=== PATIENT | male | born 1975 | race Caucasian/White ===

== ENCOUNTER 2018-03-29 08:10 | Outpatient (CLI) | payer BC ==
[~2018-03-29] VITALS: Ht 182.9 cm; Wt 88.6 kg
--- NOTE | ~2018-03-29 | OP ---
PATIENT NAME: LUNA BHATT MEDICAL RECORD: [id number] :71 LOCATION:D.CAT ADMISSION DATE: SURGEON: CHELITA PORTILLO MD DATE OF OPERATION: 03/29/2018 PROCEDURES: 1. Left heart catheterization. 2. Selective coronary angiography. 3. Left ventriculogram. INDICATIONS: Chest pain compatible with angina. PROCEDURE IN DETAIL: After informed consent was obtained and after a detailed description of risks, benefits as well as alternative therapies, the patient elected to proceed with angiogram and heart catheterization via radial area. The right radial area was prepped and draped in normal sterile fashion. Radial artery was cannulated via modified Seldinger technique with placement of 5-Croat[place] sheath. All catheters exchanged through this sheath. FINDINGS: Left ventriculogram was performed in a standard 30-degree GARCÍA view, reveals good cardiac wall motion throughout all segments. Overall ejection fraction estimated 60%. SELECTIVE CORONARY ANGIOGRAPHY: 1. LEFT MAIN - The left anterior descending, left circumflex, right coronary artery are all smooth-walled vessels with no angiographic evidence of coronary artery disease. OVERALL IMPRESSION: 1. No angiographic evidence of coronary artery disease. 2. Normal left heart pressures. 3. Normal left ventricular systolic function. 4. Chest pain is noncardiac in etiology. No other cardiac workup needs to be ascertained. TRANSINT:[id number] Voice Confirmation ID: [id number] DOCUMENT ID: [id number] CHELITA PORTILLO MD at 1823 CC: [id number] DICTATION DATE: 03/29/18 1007 ROLLING CHAIR PUSHER: 03/29/18 1046 DEP CLI 03/29/18 [place] [id number]
--- NOTE | ~2018-03-29 | HEMODYNAMI ---
PATIENT:LUNA BHATT MEDICAL RECORD: [id number] : 71 LOCATION:[facility] ADMISSION DATE: 03/29/18 Generatedon:03/29/201810:08 Patient name: LUNA BHATT Patient #: [id number] SSN: : 1975 Date of study: 03/29/2018 Page: Of Hemodynamic Procedure Report Patient Data Patient Demographics Procedure consent was obtained First Name: LUNA Gender: Male Last Name: MILLER : 1975 Patient #: [id number] Age: 42 year(s) Race: Unknown Additional ID: [id number] Contact details Address: [place] [address] State: [place] City: [place] Zip code: [address] Past Medical History Allergies: No known allergies Admission Admission Data Admission Date: 03/29/2018 Admission Time: 8:10 Procedure Procedure Types Cath Procedure Diagnostic Procedure LHC LHC w/Coronaries Procedure Description Procedure Date Procedure Date: 03/29/2018 Procedure Start Time: 9:59 Procedure End Time: 10:06 Procedure Staff Name Function Loyd Hatch MD Performing Physician Katrin Kramer RT Monitor Suzy Beltrán RT Scrub Velasquez Liu RN Nurse Dayron Moore RN Card Placer Procedure Data Cath Procedure Fluoroscopy Diagnostic fluoroscopy Total fluoroscopy Time: 1.4 time: 1.4 min min Diagnostic fluoroscopy Total fluoroscopy dose: 322 dose: 322 mGy mGy Contrast Material Contrast Material Type Amount (ml) Isovue 300 42 Entry Location Entry Primary Successful Side Size Upsize Upsize Entry Closure Ramachandran ccessful Closure Location (Fr) 1 (Fr) 2 (Fr) Remarks Device Remarks Radial Right 6 Fr Mechanical artery Short Compression Estimated blood loss: 10 ml Diagnostic catheters Device Type Used For End Catheter Placement DIAGNOSTIC [place] 110cm 5 Procedure Fr catheter ([id number]) Procedure Complications No complications Procedure Medications Medication Administration Route Dosage Oxygen etCO2 Nasal cannula 2 l/min Lidocaine 2% added to field 20 Heparin Flush Bag added to field 2 bags (1000units/500ml NS) 0.9% NaCl I.V. 100 ml/hr Radial Cocktail I.A. 1 syringe (Verapomil 2mg/Nitro 400mcg/Heparin 1500units) Versed I.V. 2 mg Fentanyl I.V. 100 mcg Versed I.V. 2 mg Fentanyl I.V. 100 mcg Hemodynamics Rest Heart Rate: 65 (bpm) Snapshots Pre Cath Intra NCS Post Cath Vital Signs Time Heart Resp SPO2 etCO2 NIBP (mmHg) Rhythm Pain Sedation Rate (ipm) (%) (mmHg) Status Level (bpm) 9:47:26 76 12 97 42.6 147/74(107) NSR 0 (11) 10(A) , No pain 9:51:42 69 31 95 36.7 137/76(118) NSR 0 (11) 10(A) , No pain 9:56:52 77 19 94 24.7 150/89(121) NSR 0 (11) 10(A) , No pain 10:02:19 78 23 94 31.4 118/68(100) NSR 0 (11) 9(A) , No pain 10:05:55 82 25 96 39.6 129/68(94) NSR 0 (11) 10(A) , No pain Medications Time Medication Route Dose Verified Delivered Reason Notes Effectiveness by by 9:43:34 Oxygen etCO2 2 l/min Loyd Padgett used for Nasal Holden Moore RN procedure cannula 9:44:06 Lidocaine 2% added 20ml Loyd Harp for local to vial Holden Hatch MD anesthetic field 9:44:13 Heparin Flush added 2 bags Loyd Harp used for Bag to Holden Hatch MD procedure (1000units/500ml field NS) 9:44:22 0.9% NaCl I.V. 100 Loyd Padgett Per ml/hr Holden Moore RN physician 9:44:33 Radial Cocktail I.A. 1 Loyd Harp for (Verapomil syringe Holden Hatch MD vasodilation 2mg/Nitro 400mcg/Heparin 1500units) 10:00:12 Versed I.V. 2 mg Loyd Alanie for sedation Holden Moore RN 10:00:18 Fentanyl I.V. 100 mcg Loyd Padgett for sedation Holden Moore RN 10:03:50 Versed I.V. 2 mg Loyd Alanie for sedation Holden Moore RN 10:03:54 Fentanyl I.V. 100 mcg Loyd Padgett for sedation Holden Moore RN Procedure Log Time Note 9:28:54 Velasquez Liu RN sent for patient. Start room use. 9:28:55 Time tracking: Regular hours (M-F 7:00 - 5:00) 9:29:00 Plan of Care:Hemodynamics will remain stable., Cardiac rhythm will remain stable., Comfort level will be maintained., Respiratory function will remain adequate., Patient/ family verbilizes understanding of procedure., Procedure tolerated without complication., Recovers from procedure without complications.. 9:33:37 Patient received from Pre/Post Procedure Room to [facility] 2 Alert and oriented. Tansferred to table in Supine position. 9:33:38 Warm blankets applied, and chrystal hugger turned on for patient comfort. 9:33:39 Correct patient and procedure confirmed by team. 9:33:40 Signed procedure consent form obtained from patient. 9:33:41 ECG and BP/O2 sat monitors applied to patient. 9:43:34 Oxygen 2 l/min etCO2 Nasal cannula was administered by Dayron Moore RN; used for procedure; 9:44:06 Lidocaine 2% 20ml vial added to field was administered by Loyd Hatch MD; for local anesthetic; 9:44:13 Heparin Flush Bag (1000units/500ml NS) 2 bags added to field was administered by Loyd Hatch MD; used for procedure; 9:44:22 0.9% NaCl 100 ml/hr I.V. was administered by Dayron Moore RN; Per physician; 9:44:33 Radial Cocktail (Verapomil 2mg/Nitro 400mcg/Heparin 1500units) 1 syringe I.A. was administered by Loyd Hatch MD; for vasodilation; 9:46:16 Vital chart was started 9:46:17 Baseline sample Acquired. 9:46:26 Rhythm: sinus rhythm 9:46:30 Full Disclosure recording started 9:46:34 H&P Date Dictated: 03/29/2018 Within 30 days and on chart., H&P Addendum completed by physician on day of procedure. (MUST COMPLETE FOR ALL OUTPATIENTS). 9:46:36 Pre-procedure instructions explained to patient. 9:46:38 Family in waiting room. 9:46:41 Patient NPO since Midnight. 9:46:49 Patient allergic to No known allergies 9:47:00 Is the patient allergic to Iodine/contrast media? No. 9:47:02 Was the patient premedicated? Yes 9:47:03 Is patient on blood thinner?No 9:47:05 Patient diabetic? No. 9:47:09 Snore? Yes 9:47:11 Sleep apnea? No 9:47:13 Deviated septum? No 9:47:21 Patient pain scale 0/10 ?. 9:47:28 IV patent on arrival in left forearm with 0.9% NaCl at [facility]. 9:47:34 Lab results completed and on chart. 9:47:39 Right Radial & Right Groin area was prepped with chlora-prep and draped in sterile fashion 9:47:41 Alarms reviewed by Amaris Kessler 9:47:45 Physician paged 9:47:54 Physician arrived 9:47:59 Use device set Radial Dx or PCI 9:48:00 ACIST Syringe (45754) opened to sterile field. 9:48:01 Medline Cath Pack ([id number]) opened to sterile field. 9:48:01 Bag Decanter (2002S) opened to sterile field. 9:48:02 DIAGNOSTIC WIRE .035 260cm J wire ([id number]) opened to sterile field. 9:48:02 ACIST Hand Control (93698) opened to sterile field. 9:48:03 ACIST Manifold (03291) opened to sterile field. 9:48:03 Tegaderm 4 x 4 (1626W) opened to sterile field. 9:48:04 MBrace Wrist Support ([id number]) opened to sterile field. 9:48:05 NEEDLE Cook 21G 4cm Radial ([id number]) opened to sterile field. 9:48:07 SHEATH 6Fr Prelude Radial ([id number]) opened to sterile field. 9:58:10 --------ALL STOP TIME OUT------ 9:58:10 Final Timeout: patient, procedure, and site verified with staff and physician. All members of the team are in agreement. 9:58:12 Right Radial & Right Groin site verified by team. 9:58:16 Physical assessment completed. ASA score P 2 - A patient with mild systemic disease as per Loyd Hatch MD. 9:58:20 Sedation plan: IV Moderate Sedation Medication:Versed, Fentanyl 9:59:17 Procedure started. 9:59:21 Local anesthetic to right radial artery with Lidocaine 2% by Loyd Hatch MD.INITIAL ACCESS ONLY 10:00:12 Versed 2 mg I.V. was administered by Dayron Moore RN; for sedation; 10:00:18 Fentanyl 100 mcg I.V. was administered by Dayron Moore RN; for sedation; 10:00:22 A 6 Fr Short sheath was inserted into the Right Radial artery 10:00:26 J wire advanced. 10:01:04 A DIAGNOSTIC [place] 110cm 5 Fr catheter ([id number]) was advanced over the wire and used for Procedure. 10:01:08 LV angiography performed. 10::56 EF : 60 % 10::59 LCA angiography performed. 10:02:46 RCA angiography performed. 10:03:34 Catheter removed. 10:03:50 Versed 2 mg I.V. was administered by Dayron Moore RN; for sedation; 10:03:54 Fentanyl 100 mcg I.V. was administered by Dayron Moore RN; for sedation; 10:03:56 Sheath removed intact; hemostasis achieved with Mechanical Compression to the Right Radial artery. 10:03:59 Procedure ended.(Physican Out) 10:04:23 Fluoroscopy time 01.40 minutes. 10:04:26 Fluoroscopy dose: 322 mGy 10:04:26 Flurop Dose total: 322 10:04:30 Contrast amount:Isovue 300 42ml. 10:04:31 Sharps counted by scrub and verified by R.N. 10:04:35 TR band inflated with 10cc of air. 10:04:36 Insertion/operative site no bleeding no hematoma. 10:04:38 Post Procedure Pulses reassessed and unchanged 10:04:41 Post procedure rhythm: sinus rhythm 10:04:44 Estimated blood loss: 10 ml 10:04:46 Post procedure instruction explained to patient.Patient verbalizes understanding. 10:04:53 Procedure and supply charges have been captured, reviewed, submitted and are correct. 10:06:03 Procedure Complication : No complications 10:06:05 Vital chart was stopped 10:06:06 See physician's report for complete and final results. 10:06:08 Report given to Pre/Post Procedure Room. 10:06:12 Patient transfered to Pre/Post Procedure Room with Stretcher. 10:06:14 Procedure ended. 10:06:14 Full Disclosure recording stopped 10:06:17 End room use (Document Last) Device Usage Item Name Manufacture Quantity Catalog Number Hospital Part Current M inimal Lot# / Charge Number Stock Stock Serial# Code ACIST Syringe Acist 1 [id number] 704782 583476 [id number] 2 0 (23598) [employer] Medline Cath Cardinal 1 [id number] 23048 [id number] 5 Pack Health ([id number]) Bag Decanter Microtek 1 2001S 976266 19851 371902 5 (2001S) Medical Inc. DIAGNOSTIC WIRE St Satya 1 504165 525757 561047 550254 3 0 .035 260cm J wire (239481) ACIST Hand Acist 1 93621 849044 846280 165665 5 Control (11889) [employer] ACIST Manifold Acist 1 22315 157659 449310 042137 5 (85007) [employer] Inc Tegaderm 4 x 4 3M 1 1626W 634111 021896 114279 5 (1626W) MBrace Wrist Advanced 1 140-0250-00 989396 06325 055413 5 Support Vascular ([id number]) Dynamics NEEDLE Cook 21G Cook Medical 1 [id number] 003633 396130 751631 5 4cm Radial ([id number]) SHEATH 6Fr Merit 1 [id number] 744269 314983 695942 5 Prelude Radial Medical ([id number]) DIAGNOSTIC Terumo 1 24-4722 263415 854239 208845 5 [place] 110cm 5 Fr catheter (847993) Signature Audit [place] Stage Time Signature Unsigned Intra-Procedure 03/29/2018 Katrin Kramer 10:08:36 AM RT(R) Signatures Monitor : Katrin Kramer Signature : RT Date : Time : [id number] [place] [address]
[2018-03-29] MEDS ORDERED: METOPROLOL TART50 MG PO (08:21)
[2018-03-29 08:33] VITALS: BP 155/96; Ht 182.9 cm; Wt 88.6 kg
[2018-03-29 08:41] LABS: BASOPHILS 0.4 % (0-2); EOSINOPHILS 1.7 % (0-7); HEMATOCRIT 49.2 % (42.0-54.0); HEMOGLOBIN 16.8 g/dL (13.5-17.5); IMMATURE GRANULOCYTES 0.3 % (0-5); LYMPHOCYTES 19.6 % (15-50); MCH 32.5 pg (26.0-34.0); MCHC 34.1 g/dL (31.0-37.0); MCV 95.2 fL (80.0-100.0); MEAN PLATELET VOLUME 9.4 fL (7.4-10.4); MONOCYTES 7.3 % (2-11); NEUTROPHILS 70.7 % (40-80); PLATELET COUNT 260 10x3/uL (130-400); RBC 5.17 10x6/uL (4.20-6.10); RDW 13.4 % (11.5-14.5); WBC 11.1 10x3/uL (4.8-10.8)
[2018-03-29 08:50] LABS: ANION GAP 15.4 mmol/L (8-16); CREATININE - SERUM 1.2 mg/dL (0.6-1.3); POTASSIUM - SERUM 4.4 mmol/L (3.5-5.1)
== END 2018-03-29 12:15 | disposition home or self-care (01) ==
LOC: D.CATH 08:10
PROVIDERS: Internal Medicine Interventional Cardiology
DX: I20.9 Angina pectoris, unspecified (principal); R94.39 Abnormal result of other cardiovascular function study